=== PATIENT | male | born 1970 | race Caucasian/White ===

== ENCOUNTER 2017-11-02 19:45 | Emergency (ER) | payer OTHER ==
[2017-11-02] MEDS ORDERED: Adacel (T-DAP) 0.5 ML VIAL ONE (20:32)
[2017-11-02 20:33] LABS: #Basophils 0.1 thou/uL (0.0-0.2); #Eosinphils 0.3 thou/uL (0.0-0.7); #Lymphocytes 2.4 thou/uL (1.20-3.40); #Monocytes 0.7 thou/uL (0.11-0.59); #Neutrophils 8.2 thou/uL (1.40-6.50); %Basophils 1.3 % (0.0-1.0); %Eosinophils 2.3 % (0.0-10.0); %Lymphocytes 20.6 % (21.0-51.0); %Monocytes 6.3 % (0.0-10.0); %Neutrophils 69.6 % (42.0-75.0); Hemoglobin 15.8 g/dL (14.0-18.0); Mean Corpuscular HGB CONC 32.9 g/dL (32.0-36.0); Mean Corpuscular Hemoglobin 28.2 pg (27.0-31.0); Mean Corpuscular Volume 85.7 fL (78.0-98.0); Mean Platelet Volume 6.7 fL (7.4-10.4); Platelet Count 507 thou/uL (130-400); RBC Distribution Width 13.4 % (11.5-14.5); Red Blood Cell (RBC) Count 5.59 mill/uL (4.70-6.10); White Blood Cell (WBC) Count 11.7 thou/uL (4.8-10.8)
[2017-11-02 20:36] LABS: PTT 30.8 SEC (22.9-36.1)
[2017-11-02 20:42] LABS: ALT (SGPT) 55 U/L (8-55); AST (SGOT) 36 U/L (5-34); Albumin 4.6 g/dL (3.5-5.0); Alkaline Phosphatase 92 U/L (40-150); Anion Gap 17 mmol/L (10-20); BUN (Urea Nitrogen) 19 mg/dL (8.9-20.6); Bilirubin, Total 0.7 mg/dL (0.2-1.2); CK (CPK) 371 U/L (30-200); Calc. Creatinine Clearance 0 mL/min (70-130); Calcium 9.9 mg/dL (7.8-10.44); Carbon Dioxide 22 mmol/L (22-29); Chloride 107 mmol/L (98-107); Estimated GFR-MDRD 48; Globulin 2.9 g/dL (2.4-3.5); Glucose 95 mg/dL (70-105); Potassium 3.9 mmol/L (3.5-5.1); Protein, Total 7.5 g/dL (6.0-8.3); Sodium 142 mmol/L (136-145)
[2017-11-02] MEDS ORDERED: Sodium Chloride 0.9% 1,000 ML ONE (20:46)
== END 2017-11-02 22:22 | disposition home or self-care (01) ==
LOC: NAV ERS 19:45
DX: T63.091A Toxic effect of venom of other snake, accidental (unintentional), initial encounter (principal); E86.0 Dehydration; N17.9 Acute kidney failure, unspecified; F32.9 Major depressive disorder, single episode, unspecified; I10 Essential (primary) hypertension; Z79.82 Long term (current) use of aspirin
CPT/HCPCS: 80053; 82550; 85025; 85384; 85610; 85730; 90471; 90715; 93005; 96360; J7050